=== PATIENT | male | born 1990 | race Two or more races ===

== ENCOUNTER 2016-09-24 00:29 | Emergency (ER) | payer SELFPAY ==
[~2016-09-24] VITALS: Ht 167.6 cm; Wt 65.8 kg
--- NOTE | 2016-09-24 00:40 | NUR ---
JOHNNY CANO AND ACCOMPANIED BY LAPPily HERE FOR PSYCH EVAL. PER REPORT "[facility] [employer] [facility] PT WAS "SUICIDAL AND HAD WRITTEN A SUICIDAL NOTE September; ALSO USED USED METH YESTERDAY AT 1700". DENIES CP/SOB/N/V. TACHYCARDIC AT [address] INIGUEZ NOTIFIED. PLACED ON MONITOR AND OXYGEN. SI PRECS IN PLACE. MONITORED CLOSELY AND AWAITS MD BANKS.
[2016-09-24] MEDS ORDERED: IV SET PRIMARY 1 EA INFUS.SET MC ONE (00:55)
[2016-09-24] MEDS ORDERED: IV NS 0.9% 1,000 ML ONE (00:56)
[2016-09-24] MEDS ORDERED: IV NS 0.9% 1,000 ML BAG IV ONE (01:00)
--- NOTE | 2016-09-24 01:10 | NUR ---
MEDICATED ORDERED. STILL MONITORED CLOSELY
[2016-09-24 01:16] LABS: BASOPHILS % (AUTO) 0.1 % (0.0-2.0); EOSINOPHILS % (AUTO) 0.1 % (0.0-6.0); HEMATOCRIT 44 % (39-51); HEMOGLOBIN 14.7 g/dL (13.5-17.5); LYMPHOCYTES # (AUTO) 0.9 /CMM (0.8-4.8); LYMPHOCYTES % (AUTO) 5.1 % (20.0-44.0); MEAN CORPUSCULAR HEMOGLOBIN 30 PG (26.0-33.0); MEAN CORPUSCULAR HGB CONC 34 g/dl (31.0-36.0); MEAN CORPUSCULAR VOLUME 90 fL (80-96); MONOCYTES % (AUTO) 5.5 % (2.0-12.0); NEUTROPHILS # (AUTO) 15.6 /CMM (1.8-8.9); NEUTROPHILS % (AUTO) 89.2 % (43.0-81.0); PLATELET COUNT (AUTO) 269 /CMM (150-450); RDW COEFFICIENT OF VARIATION 11.8 (11.5-15.0); RED BLOOD CELL COUNT(AUTO) 4.84 MIL/uL (4.5-6.0); WHITE BLOOD COUNT (AUTO) 17.5 K/uL (4.3-11.0)
[2016-09-24 01:27] LABS: CALCIUM, SERUM 8.6 mg/dL (8.5-10.1); CARBON DIOXIDE 28 mmol/L (21-32); CHLORIDE 100 mmol/L (98-107); CREATININE 1.3 mg/dL (0.6-1.3); GFR 66 mL/min (>60); GLUCOSE 153 mg/dL (74-106); POTASSIUM 4.1 mmol/L (3.5-5.1); SODIUM SERUM 137 mmol/L (136-145); UREA NITROGEN, BLOOD 20 mg/dL (7-18)
[2016-09-24 01:32] LABS: ALANINE AMINOTRANSFERASE 168 U/L (12-78); ALBUMIN 4.5 g/dL (3.4-5.0); ALCOHOL, BLOOD < 3 mg/dL (0-0); ALKALINE PHOSPHATASE 95 U/L (46-116); ASPARTATE AMINOTRANSFERASE 71 U/L (15-37); BILIRUBIN,DIRECT 0.1 mg/dL (0.0-0.2); BILIRUBIN,TOTAL 0.5 mg/dL (0.2-1.0); TOTAL PROTEIN, SERUM 8.3 g/dL (6.4-8.2)
[2016-09-24 01:33] LABS: ACETAMINOPHEN 0 ug/ml (10-30); SALICYLATE 0.9 mg/dL (2.8-20.0)
--- NOTE | 2016-09-24 02:07 | NUR ---
STATES "IV CAME OUT WHILE TURNING; DIDNT PULL IT PUT". BLEEDING CONTAINED WITH 2X2. AMBULATED TO RESTROOM FOR URINE SAMPLE BUT UNABLE TO AT THIS TIME. REFUSES I&O AND STATES "GIBE ME SOME WATER AND I WILL TRY". GIVEN WATER. DR. INIGUEZ NOTIFIED.
[2016-09-24 03:01] LABS: APPEARANCE,URINE CLEAR (CLEAR); BILIRUBIN,URINE NEGATIVE (NEGATIVE); BLOOD, URINE NEGATIVE Ery/uL (NEGATIVE); COLOR,URINE YELLOW (YELLOW); KETONES,URINE NEGATIVE (NEGATIVE); LEUKOCYTE ESTERASE ,URINE NEGATIVE (NEGATIVE); NITRITE, URINE NEGATIVE (NEGATIVE); PROTEIN,URINE TRACE mg/dl (NEGATIVE); UGLUCOSE NEGATIVE (NEGATIVE); UROBILINOGEN,URINE 0.2 EU/dL (0.2)
[2016-09-24 03:07] LABS: CANNABINOID, URINE NEGATIVE (NEGATIVE); PHENCYCLIDINE SCREEN,URINE NEGATIVE (NEGATIVE)
--- NOTE | 2016-09-24 03:17 | NUR ---
PER ART "MEDICATE AND I WILL EVALUATE PT IN THE MORNING". DR. INIGUEZ AWARE
[2016-09-24 03:21] LABS: ADD URINE CULTURE NO; BACTERIA,URINE None seen /HPF (None Seen); RBC,URINE 0-2 /HPF (0-2); SQUAMOUS EPITHELIAL CELL,UR Rare /HPF (None Seen); WBC,URINE 0-2 /HPF (0-3)
[2016-09-24] MEDS ORDERED: LORAZEPAM INJ 2 MG/ML VIAL ONE (03:21)
[2016-09-24] MEDS ORDERED: LORAZEPAM INJ 2 MG/ML VIAL IM ONE (03:30)
--- NOTE | 2016-09-24 04:04 | NUR ---
RESTING QUIETLY WITH NO S/S OF DISTRESS. RESP EVEN AND UNLABORED. STILL ON MONITOR AND OXYGEN.
--- NOTE | 2016-09-24 05:12 | NUR ---
REMAINS RESTING WITH NO S/S OF DISTRESS. RESP EVEN AND UNLABORED.
--- NOTE | 2016-09-24 06:25 | NUR ---
NO NEW CHANGES FROM PREVIOUS ASSESSMENT. RESP EVEN AND UNLABORED. WILL CONTINUE TO MONITOR PT.
--- NOTE | 2016-09-24 07:15 | NUR ---
RECEIVED PT ON BED AWAKE ORIENTED. DENIES SI HI. MADE AWARE .
--- NOTE | 2016-09-24 07:20 | NUR ---
AT BEDSIDE FOR EVAL
[2016-09-24 07:44] VITALS: BP 116/84
--- NOTE | 2016-09-24 07:46 | NUR ---
Patient discharged to home in stable condition. Written and verbal after care instructions given. Patient verbalizes understanding of instruction.
== END 2016-09-24 07:47 | disposition home or self-care (01) ==
LOC: ER 00:34
DX: R45.851 Suicidal ideations (principal); F14.10 Cocaine abuse, uncomplicated; F11.10 Opioid abuse, uncomplicated; F32.9 Major depressive disorder, single episode, unspecified; F31.9 Bipolar disorder, unspecified
CPT/HCPCS: 36415; 71010-TC; 80048-TC; 80076-TC; 80305; 81000-TC; 85025-TC; A4606; G0480; G6039-TC; J2060; J7030; Z7610

== ENCOUNTER 2017-11-24 22:36 | Inpatient (IN) | payer OTHER ==
[~2017-11-24] VITALS: Ht 172.7 cm; Wt 75.3 kg
--- NOTE | 2017-11-24 22:36 | NUR ---
PT BB FRIEND C/C BILATERAL LOWER FOOT INFECTION S/P RIPPING TOE NAILS OFF AFTER USING METH AND HAS BEEN ON ATB SINCE TUESDAY. VSS CHRISTINE A/BOOKER ABLE TO MAKE NEEDS KNOWN. WILL CONTINUE TO MONITOR FOR ANY CHANGES DURING THE SHIFT. Addendum: 11/25/17 at 0021 by WROBBINS COCAINE AND HEROINE. NOT METH
[2017-11-24] MEDS ORDERED: ONDANSETRON HCL/PF 4 MG/2 ML VIAL ONE ×2 (23:16→23:21)
[2017-11-24] MEDS ORDERED: VANCOMYCIN 1 GM VIAL ONE ×2 (23:16→23:22)
[2017-11-24] MEDS ORDERED: MORPHINE SULFATE INJ 4 MG/ML DISP.SYRIN ONE ×2 (23:17→23:22)
[2017-11-24] MEDS ORDERED: MORPHINE SULFATE INJ 2 MG/ML DISP.SYRIN IV ONE (23:30)
[2017-11-24] MEDS ORDERED: VANCOMYCIN 1 GM in IV D5W 250 ML IV ONE (23:30)
[2017-11-24] MEDS ORDERED: ONDANSETRON HCL/PF 4 MG/2 ML VIAL IV ONE (23:30)
[2017-11-24 23:55] LABS: BASOPHILS % (AUTO) 0.2 % (0.0-2.0); EOSINOPHILS % (AUTO) 5.3 % (0.0-6.0); HEMATOCRIT 36 % (39-51); HEMOGLOBIN 12.3 g/dL (13.5-17.5); LYMPHOCYTES # (AUTO) 1.2 /CMM (0.8-4.8); MEAN CORPUSCULAR HGB CONC 34 g/dl (31.0-36.0); MEAN CORPUSCULAR VOLUME 93 fL (80-96); MONOCYTES # (AUTO) 0.5 /CMM (0.1-1.30); MONOCYTES % (AUTO) 7.4 % (2.0-12.0); NEUTROPHILS # (AUTO) 5.1 /CMM (1.8-8.9); NEUTROPHILS % (AUTO) 70.1 % (43.0-81.0); PLATELET COUNT (AUTO) 275 /CMM (150-450); RDW COEFFICIENT OF VARIATION 11.9 (11.5-15.0); RED BLOOD CELL COUNT(AUTO) 3.84 MIL/uL (4.5-6.0); WHITE BLOOD COUNT (AUTO) 7.2 K/uL (4.3-11.0)
[2017-11-25 00:12] LABS: INR 0.96 (0.87-1.13)
[2017-11-25 00:19] LABS: CALCIUM, SERUM 8.9 mg/dL (8.5-10.1); CREATININE 0.9 mg/dL (0.6-1.3); POTASSIUM 3.3 mmol/L (3.5-5.1)
--- NOTE | 2017-11-25 00:21 | NUR ---
PT SEEN BY FABIOLA AND OLMAN TO BE ADM TO [facility]
--- NOTE | 2017-11-25 00:26 | NUR ---
REPORT GIVEN TO GWENDOLYN
[2017-11-25] MEDS ORDERED: ACETAMINOPHEN 325 MG TABLET PO PRN (00:30)
[2017-11-25] MEDS ORDERED: MAG HYDROX/AL HYDROX/SIMETH 30 ML UDC PO PRN (00:30)
[2017-11-25] MEDS ORDERED: MAGNESIUM HYDROXIDE 30 ML UDC PO PRN (00:30)
[2017-11-25] MEDS ORDERED: ONDANSETRON HCL/PF 4 MG/2 ML VIAL IVP PRN (00:30)
[2017-11-25] MEDS ORDERED: Z GUARD REMEDY 2 OZ OINT TP PRN (00:30)
[2017-11-25 00:50] VITALS: BP 124/74
[2017-11-25 01:00] VITALS: BP 124/74
[2017-11-25] MEDS ORDERED: POTASSIUM CHLORIDE 20 MEQ TAB.PRT.SR PO ONE (01:00)
[2017-11-25] MEDS ORDERED: PIPERACILLIN /TAZOBACTAM 3.375 G in IV NS 0.9% 50 ML IV ONE (01:00)
--- NOTE | 2017-11-25 01:00 | NUR ---
RN ADMITTING NOTES RECEIVED REPORT FROM FIREFIGHTER NILSA. Pt ARRIVED TO THE FLOOR VIA WHEELCHAIR. NO S/S OF ACUTE DISTRESS OR SOB NOTED. Pt IS A/OX4, VERBAL, ABLE TO MAKE NEEDS KNOWN. M/S ADMISSION. IV ACCESS ON RFA #18G. SAFETY MEASURES IN PLACE. BED LOW, LOCKED, HOB ELEVATED, SIDE RAILS UP, CALL LIGHT AND BEDSIDE TABLE WITHIN REACH. WILL CONTINUE TO MONITOR Pt THROUGHOUT THE NIGHT.
--- NOTE | 2017-11-25 01:30 | NUR ---
RN NOTES PICTURES TAKEN ON L AND R FOOT TOES. CLEANSED TOES WITH NS, PATTED DRY, COVERED EACH TOE WITH BANDAID. WRAPPED TOES WITH KERLIX AND SECURED WITH TAPE.
[2017-11-25] MEDS: IV NS 0.9% 1,000 ML IV PRN ×2 (01:55→21:10)
[2017-11-25] MEDS ORDERED: PIPERACILLIN /TAZOBACTAM 3.375 G VIAL IV ONE ×2 (01:58→06:22)
--- NOTE | 2017-11-25 02:00 | NUR ---
RN NOTES PER NURSE SUPP SAID IT WAS OK FOR THE DESK EDITOR TO OVERRIDE THE ZOSYN IN THE OMNICELL TO GIVE TO Pt PER MD ORDER OF X1 DOSE OF ZOSYN 3.375G.
[2017-11-25] MEDS: HYDROCODONE/APAP 5/325MG 1 EACH TABLET PO PRN ×3 (02:40→15:15)
[2017-11-25] MEDS ORDERED: SERT100T PO (03:18)
[2017-11-25] MEDS ORDERED: BUPR150T5 PO (03:18)
[2017-11-25] MEDS ORDERED: SULF1TAB48 PO (03:19)
[2017-11-25] MEDS: PIPERACILLIN /TAZOBACTAM 3.375 G in IV NS 0.9% 50 ML IV SCH ×4 (06:00→23:28)
--- NOTE | 2017-11-25 06:36 | NUR ---
RN NOTES Pt REFUSED AM LAB DRAWS. SAID THEY WILL COME BACK LATER TODAY TO RETRY AGAIN.
--- NOTE | 2017-11-25 06:41 | NUR ---
TEXTED DR. ROCA FOR MRI APPROVAL,
--- NOTE | 2017-11-25 06:45 | NUR ---
RN CLOSING NOTES NO SIGNIFICANT CHANGES IN Pt's CONDITION. Pt REMAINS STABLE AT THIS TIME. NO S/S OF ACUTE DISTRESS OR SOB NOTED DURING THE SHIFT. ALL NEEDS MET AND ATTENDED TO. SAFETY MEASURES IN PLACE. BED LOW, LOCKED, HOB ELEVATED, SIDE RAILS UP, CALL LIGHT AND BEDSIDE TABLE WITHIN REACH. WILL ENDORSE TO DAYSHIFT RN FOR Pt's DANII.
[2017-11-25] MEDS ORDERED: FEE PK DOSING 1 MIN EA MC ONE (07:00)
--- NOTE | 2017-11-25 07:30 | NUR ---
MS/RN OPENING NOTE PATIENT ALERT AND ORIENTED X4. DENIES SOB. RESPIRATION REGULAR AND UNLABORED. DENIES PAIN. PATIENT NOTED WITH BOTH FEET TOES DRESSING IN PLACE. NO STRIKE THRU NOTED. PEDAL PULSES PRESENT. RFA G 18 PATENT AND IV FLUIDS INFUSING WITH NO S/S INFILTRATION. BED LOW AND LOCKED. SIDE RAILS UP X2. CALL LIGHT WITHIN REACH. WILL CONTINUE TO MONITOR.
[2017-11-25 08:00] VITALS: BP 113/62
--- NOTE | 2017-11-25 08:14 | NUR ---
MS/RN NOTE PATIENT IS SEENT BY DR BLACKBURN. NEW ORDER ARE RECEIVED. THE ORDERS READ BACK, VERIFIED, NOTED AND CARRIED OUT.
[2017-11-25] MEDS ORDERED: LIDOCAINE 1% INJ 50 ML MDV IJ ONE (08:30)
[2017-11-25] MEDS ORDERED: MORPHINE SULFATE INJ 4 MG/ML DISP.SYRIN IV STA (08:44)
[2017-11-25 09:42] LABS: BASOPHILS % (AUTO) 0.3 % (0.0-2.0); EOSINOPHILS % (AUTO) 5.4 % (0.0-6.0); HEMATOCRIT 34 % (39-51); HEMOGLOBIN 11.7 g/dL (13.5-17.5); LYMPHOCYTES # (AUTO) 0.9 /CMM (0.8-4.8); LYMPHOCYTES % (AUTO) 12.1 % (20.0-44.0); MEAN CORPUSCULAR HGB CONC 35 g/dl (31.0-36.0); MEAN CORPUSCULAR VOLUME 93 fL (80-96); MONOCYTES # (AUTO) 0.5 /CMM (0.1-1.30); MONOCYTES % (AUTO) 7.5 % (2.0-12.0); NEUTROPHILS # (AUTO) 5.4 /CMM (1.8-8.9); NEUTROPHILS % (AUTO) 74.7 % (43.0-81.0); PLATELET COUNT (AUTO) 268 /CMM (150-450); RDW COEFFICIENT OF VARIATION 11.7 (11.5-15.0); RED BLOOD CELL COUNT(AUTO) 3.64 MIL/uL (4.5-6.0); WHITE BLOOD COUNT (AUTO) 7.2 K/uL (4.3-11.0)
[2017-11-25 09:58] LABS: CALCIUM, SERUM 8.5 mg/dL (8.5-10.1); MAGNESIUM 1.8 mg/dL (1.8-2.4); PHOSPHORUS 3.6 mg/dL (2.5-4.9); POTASSIUM 3.9 mmol/L (3.5-5.1)
[2017-11-25] MEDS ORDERED: BACITRACIN/POLYMYXIN B 15 GM TUBE TP SCH (10:00)
--- NOTE | 2017-11-25 10:02 | NUR ---
WOUND CARE CONSULT: PT PRESENTS WITH LEFT SHOULDER/BACK AREA WOUND WHICH HAS SIGNS OF HEALING AT EDGES. RECOMMENDATIONS MADE FOR WOUND CARE. DISCUSSED WITH NURSING STAFF. DEFER TO DPM FOR LOWER EXTREMITIES. PT INDEPENDENT WITH BED MOBILITY AND CONTINENT. WILL SEE PRN. JOHNSON IN AGREEMENT WITH PLAN OF CARE. Addendum: 11/25/17 at 1003 by CHARO RAYA WNDNU Amended: Links added.
[2017-11-25] MEDS: PANTOPRAZOLE 40 MG TABLET.DR PO SCH (10:07)
[2017-11-25] MEDS: ENOXAPARIN SODIUM 40 MG/0.4 ML DISP.SYRIN SQ SCH (10:08)
[2017-11-25] MEDS: VANCOMYCIN 1.25 GM in IV D5W 500 ML IV SCH ×2 (10:09→16:29)
--- NOTE | 2017-11-25 14:52 | NUR ---
Social service consult requested by DARWIN Honeycutt for IV drug use. Pt. is a 27-year-old male with past medical history of bipolar disorder and polysubstance drug abuse who presented to [facility] for infected toes. SW met with pt. bedside. Pt. is alert and oriented x 3. Pt. appeared a bit tired since he had surgery earlier this morning. Pt. states he resides at a sober living but did not provide the address. Pt. was sober for 7 months but went on a binder that included coke, and heroin. Pt. stated he woke up the next day surrounded by a lot of blood, with severely bleeding toes. Pt. is not sure if he pulled off all his 10 toenails or that he may have cut them off with nail clippers, and may have also chewed them off as well. Pt. states he has a history of self-mutilation and "has done bad things in the past." Pt. states he attended [facility] drug treatment program for 7 months and completed their program. SW inquired with pt. if there was any stressors that led him to use again. Pt. stated, there were none. Pt. smokes cigarettes occasionally. Denies using alcohol and marijuana. SW offered pt. referrals to drug treatment programs, however pt. declined. Pt. stated he is able to stop using as before. No other social service needs are required at this time. SW is available, if needed.
[2017-11-25 16:00] VITALS: BP 106/53
[2017-11-25] MEDS: MORPHINE SULFATE INJ 4 MG/ML DISP.SYRIN IV PRN (17:19)
--- NOTE | 2017-11-25 18:49 | NUR ---
MS/RN CLOSING NOTE PATIENT ALERT AND ORIENTED X4. RESPIRATION REGULAR AND UNLABORED. DENIES SOB. BOTH FEET DRESSING INTACT WITH NO STRIKE THRU. DENIES PAIN AT THIS TIME. PEDAL PULSES PRESENT BILATERALLY. RFA G 18 PATIENT AND IV INFUSING WITH NO S/S INFILTRATION. PATIENT CONTINENT ON BOWEL AND BLADDER. BED LOW AND LOCKED. SIDE RAILS UP X2. VERBAL CUES PROVIDED TO KEEP SAFETY AWARENESS HIGH. CALL LIGHT WITHIN REACH. WILL ENDORSE TO TAXONOMIST.
--- NOTE | 2017-11-25 19:30 | NUR ---
MS RN NOTES RECEIVED RESTING COMFORTABLY ON BED,BREATHING REGULAR,IVF IN PROGRESS,BILATERAL FOOT DRESSING INTACT AND DRY.DENIES PAIN AT THE MOMENT.CALL LIGHT IN REACH,NEEDS ANTICIPATED.
--- NOTE | 2017-11-25 19:32 | NUR ---
MS/RN NOTE RECEIVED ORDER FROM DARWIN Schmitz READ BACK, VERIFIED. NOTED AND CARRIED OUT.
[2017-11-25 20:00] VITALS: BP 106/51
[2017-11-25] MEDS: SILVER SULFADIAZINE CREAM 25 GM TUBE TP SCH (20:58)
[2017-11-26] MEDS: PIPERACILLIN /TAZOBACTAM 3.375 G in IV NS 0.9% 50 ML IV SCH ×3 (05:28→18:18)
--- NOTE | 2017-11-26 06:34 | NUR ---
MS RN NOTES SLEPT WELL AT NIGHT,IV ABX TOLERATED WELL.NPO POST MIDNIGHT,FOR RIGHT GREAT TOE AMPUTATION,NOT IN THE SURGERY SCHEDULE. CONSENT SIGNED,CHECKLIST PARTIALLY DONE IVF INFUSING ON RIGHT AC,SITE REMAINS PATENT.IN NO ACUTE DISTRESS.WILL ENDORSE TO DAY NURSE FOR DANII.
[2017-11-26] MEDS: MORPHINE SULFATE INJ 4 MG/ML DISP.SYRIN IV PRN ×6 (06:55→22:07)
--- NOTE | 2017-11-26 07:17 | NUR ---
MS/RN OPENING NOTE PATIENT IN BED AWAKE. ALERT AND ORIENTED X4. DENIES SOB. RESPIRATION REGULAR AND UNLABORED. DENIES PAIN. PATIENT IN NO APPARENT DISTRESS. NPO SINCE MIDNIGHT. PATIENT IS REMINDED TO REMAIN NPO AND THE PATIENT IS EXPLAINED THE REASON FOR NPO. RFA G 18 PATENT AND IV INFUSING WITH NO S/S INFILTRATION. BILATERAL FEET DRESSING INTACT AND CLEAN. BED LOW AND LOCKED. SIDE RAILS UP X2. CALL LIGHT WITHIN REACH. WILL CONTINUE TO MONITOR.
[2017-11-26 08:00] VITALS: BP 107/61
--- NOTE | 2017-11-26 08:02 | NUR ---
MS/RN NOTE PER ALEJANDRA FROM SURGERY PATIENT`S SURGERY FOR RIGHT GREAT TOE AMPUTATION IS SCHEDULED ON Tuesday11/28/17. PATIENT IS MADE AWARE.
[2017-11-26] MEDS: PANTOPRAZOLE 40 MG TABLET.DR PO SCH (08:57)
[2017-11-26] MEDS: ENOXAPARIN SODIUM 40 MG/0.4 ML DISP.SYRIN SQ SCH (08:58)
--- NOTE | 2017-11-26 09:28 | NUR ---
MS/RN NOTE VANCO 1.25 GM DUE AT 0800 NOT ADMINISTERED YET DUE TO VANCO THROUGH DONE LATE AND RESULT STILL NOT AVAILABLE.
[2017-11-26 09:41] LABS: BASOPHILS % (AUTO) 0.2 % (0.0-2.0); EOSINOPHILS % (AUTO) 4.3 % (0.0-6.0); HEMATOCRIT 34 % (39-51); HEMOGLOBIN 11.7 g/dL (13.5-17.5); LYMPHOCYTES # (AUTO) 0.9 /CMM (0.8-4.8); LYMPHOCYTES % (AUTO) 12.8 % (20.0-44.0); MEAN CORPUSCULAR HGB CONC 35 g/dl (31.0-36.0); MEAN CORPUSCULAR VOLUME 93 fL (80-96); MONOCYTES # (AUTO) 0.4 /CMM (0.1-1.30); MONOCYTES % (AUTO) 6.1 % (2.0-12.0); NEUTROPHILS # (AUTO) 5.6 /CMM (1.8-8.9); NEUTROPHILS % (AUTO) 76.6 % (43.0-81.0); PLATELET COUNT (AUTO) 283 /CMM (150-450); RED BLOOD CELL COUNT(AUTO) 3.62 MIL/uL (4.5-6.0); WHITE BLOOD COUNT (AUTO) 7.3 K/uL (4.3-11.0)
[2017-11-26] MEDS: SILVER SULFADIAZINE CREAM 25 GM TUBE TP SCH ×2 (09:43→17:04)
[2017-11-26 09:58] LABS: CALCIUM, SERUM 8.9 mg/dL (8.5-10.1); PHOSPHORUS 3.1 mg/dL (2.5-4.9); POTASSIUM 3.9 mmol/L (3.5-5.1)
[2017-11-26] MEDS: VANCOMYCIN 1.25 GM in IV D5W 500 ML IV SCH ×3 (10:06)
--- NOTE | 2017-11-26 10:12 | NUR ---
MS/RN NOTE VANCO TROUGH 17 AND VANCO ADMINISTERED.
[2017-11-26] MEDS: HYDROCODONE/APAP 5/325MG 1 EACH TABLET PO PRN ×2 (13:40→21:01)
[2017-11-26 16:00] VITALS: BP 103/50
[2017-11-26] MEDS: LACTOBACILLUS RHAMNOSUS GG 1 EACH CAP.SPRINK PO SCH (17:03)
[2017-11-26] MEDS: VANCOMYCIN 1 GM in IV D5W 250 ML IV SCH (17:06)
[2017-11-26] MEDS: IV NS 0.9% 1,000 ML IV PRN (17:11)
--- NOTE | 2017-11-26 18:35 | NUR ---
MS/RN NOTE PATIENT IS NOTED WITH SKIN TEAR. COVERED WITH MEPILEX. INCIDENT REPORT DONE. CHANGE NURSE IS MADE AWARE. UPCOMING SHIFT IS MADE AWARE TO FOLLOW UP WITH MD.
--- NOTE | 2017-11-26 18:47 | NUR ---
MS/RN NOTE DR ARROYO IS MADE AWARE OF MRSA OF NARES RESULT. NEW ORDER IS OBTAINED. NOTED AND CARRIED OUT.
--- NOTE | 2017-11-26 18:48 | NUR ---
MS/RN CLOSING NOTE PATIENT ALERT AND ORIENTED X4. DENIES SOB. RESPIRATION REGULAR AND UNLABORED. ALL DRESSING CHANGES ON THE WOUNDS. DRESSINGS ARE INTACT AND WITH NO BLEEDING. THE PATIENT IN NO APPARENT DISTRESS. RFA G 18 PATENT AND IV INFUSING WITH NO S/S INFILTRATION. BED LOW AND LOCKED. SIDE RAILS UP X2. CALL LIGHT WITHIN REACH. WILL ENDORSE TO WRAPPER CASER.
--- NOTE | 2017-11-26 19:00 | NUR ---
RN OPENING NOTES PT AWAKE AND RESTING IN BED. PT COMPLAINS OF BILATERAL FOOT PAIN. WILL ASSESS PAIN MEDICATION ROUTINE AND CONTINUE TO MONITOR. NO SOB, OR DISTRESS AT THIS TIME. PT HAS A RIGHT FA #18 RUNNING NS @75ML/HR, PT TOLERATING FLUIDS WELL. PT SCHEDULED FOR RIGHT GREAT TOE AMPUTATION TUESDAY. SAFETY PRECAUTIONS IN PLACE. BED IN LOWEST LOCKED POSITION, X2 SIDE RAILS UP, AND CALL LIGHT WITHIN REACH. WILL CONTINUE TO MONITOR.
[2017-11-26 20:00] VITALS: BP 113/54
[2017-11-26] MEDS: MUPIROCIN OINT 2% 22 GM TUBE SCH ×2 (20:06→20:12)
--- NOTE | 2017-11-26 20:10 | NUR ---
RN NOTES CALLED [employer] FOR ISOLATION CART.
--- NOTE | 2017-11-26 20:15 | NUR ---
RN NOTES PT RECEIVED FIRST DOSE OF BACTROBAN @1999. HELD 2100 DOSE. MEDICATION Q12H.
--- NOTE | 2017-11-26 21:01 | NUR ---
RN NOTES PT REQUESTED PAIN MEDICATION FOR BILATERAL FOOT PAIN. WILL ADMINISTER PRN NORCO 5-325MG AND CONTINUE TO MONITOR.
--- NOTE | 2017-11-26 22:07 | NUR ---
RN NOTES PT STATED THAT HE WAS STILL IN PAIN AFTER PRN NORCO 5-325 MG WAS ADMINISTERED. PT VITAL SIGNS WNL. WILL ADMINISTER MORPHINE 2MG AND CONTINUE TO MONITOR.
[2017-11-27] MEDS: PIPERACILLIN /TAZOBACTAM 3.375 G in IV NS 0.9% 50 ML IV SCH ×5 (00:06→23:19)
[2017-11-27] MEDS: VANCOMYCIN 1 GM in IV D5W 250 ML IV SCH ×4 (00:42→23:19)
--- NOTE | 2017-11-27 06:12 | NUR ---
RN NOTES PT REQUESTED LAB DRAW AFTER BREAKFAST.
--- NOTE | 2017-11-27 06:47 | NUR ---
RN CLOSING NOTES PT RESTING IN BED EASILY AWOKEN. NO COMPLAINTS OF PAIN, SOB, OR DISTRESS AT THIS TIME. PT HAS A RIGHT FA #18 RUNNING NS @75ML/HR, PT TOLERATING FLUIDS WELL. PT SCHEDULED FOR RIGHT GREAT TOE AMPUTATION TUESDAY CONSENTS SIGNED AND IN CHART. ALL PATIENT NEEDS MET OVERNIGHT. SAFETY PRECAUTIONS IN PLACE. BED IN LOWEST LOCKED POSITION, X2 SIDE RAILS UP, AND CALL LIGHT WITHIN REACH. WILL ENDORSE TO DAY SHIFT NURSE FOR CONTINUITY OF CARE.
--- NOTE | 2017-11-27 07:49 | NUR ---
MS RN OPENING NOTE RECEIVED PATIENT IN BED, ALERT ORIENTED X4. ON ROOM AIR, TOLERATING WELL. RESPIRATIONS EVEN AND UNLABORED, NO SIGNS OF DISTRESS OR DISCOMFORT NOTED. ABLE TO COMMUNICATE NEEDS, DENIES PAIN AND SOB AT THIS TIME. ISOLATION PRECAUTIONS OBSERVED AT THE DOOR. RIGHT FA IVC 18G WITH FLUIDS RUNNING AT 75ML/HR. PATIENT WITH BILATERAL FOOT DRESSING, INTACT WITH MINIMAL SEROSANGUINEOUS DRAINAGE. PATIENT IS CONTINENT. ALL NEEDS ATTENDED, KEPT CLEAN AND COMFORTABLE. SAFETY MEASURES IN PLACE BED IN LOW LOCKED POSITION, SIDE RAILS UP X2, CALL LIGHT WITHIN EASY REACH, WILL CONTINUE TO MONITOR.
[2017-11-27 08:00] VITALS: BP 116/67
[2017-11-27] MEDS: LACTOBACILLUS RHAMNOSUS GG 1 EACH CAP.SPRINK PO SCH ×2 (08:26→17:24)
[2017-11-27] MEDS: NEOMY SULF/BACITRAC ZN/POLY 15 GM TUBE TP SCH ×2 (08:26→17:56)
[2017-11-27] MEDS: PANTOPRAZOLE 40 MG TABLET.DR PO SCH (08:26)
[2017-11-27] MEDS: ENOXAPARIN SODIUM 40 MG/0.4 ML DISP.SYRIN SQ SCH (08:28)
[2017-11-27] MEDS: MORPHINE SULFATE INJ 4 MG/ML DISP.SYRIN IV PRN ×6 (08:28→22:07)
[2017-11-27] MEDS: MUPIROCIN OINT 2% 22 GM TUBE SCH ×2 (08:31→21:56)
[2017-11-27] MEDS: SILVER SULFADIAZINE CREAM 25 GM TUBE TP SCH ×2 (08:41→17:56)
[2017-11-27 09:00] VITALS: BP 116/67
[2017-11-27 13:04] LABS: BASOPHILS % (AUTO) 0.4 % (0.0-2.0); EOSINOPHILS % (AUTO) 3.9 % (0.0-6.0); HEMATOCRIT 36 % (39-51); HEMOGLOBIN 12.4 g/dL (13.5-17.5); LYMPHOCYTES # (AUTO) 1.3 /CMM (0.8-4.8); LYMPHOCYTES % (AUTO) 21.8 % (20.0-44.0); MEAN CORPUSCULAR HGB CONC 34 g/dl (31.0-36.0); MEAN CORPUSCULAR VOLUME 94 fL (80-96); MONOCYTES # (AUTO) 0.5 /CMM (0.1-1.30); MONOCYTES % (AUTO) 7.5 % (2.0-12.0); NEUTROPHILS # (AUTO) 4.1 /CMM (1.8-8.9); NEUTROPHILS % (AUTO) 66.4 % (43.0-81.0); PLATELET COUNT (AUTO) 292 /CMM (150-450); RDW COEFFICIENT OF VARIATION 12.1 (11.5-15.0); RED BLOOD CELL COUNT(AUTO) 3.89 MIL/uL (4.5-6.0); WHITE BLOOD COUNT (AUTO) 6.1 K/uL (4.3-11.0)
[2017-11-27 13:19] LABS: CALCIUM, SERUM 8.8 mg/dL (8.5-10.1); CREATININE 1.1 mg/dL (0.6-1.3); MAGNESIUM 2.2 mg/dL (1.8-2.4); PHOSPHORUS 3.6 mg/dL (2.5-4.9)
[2017-11-27 16:16] VITALS: BP 125/71
--- NOTE | 2017-11-27 19:30 | NUR ---
RN OPENING NOTES PT AWAKE AND RESTING IN BED. FRIEND AT BEDSIDE. PT COMPLAINS OF BILATERAL FOOT PAIN. WILL ASSESS PRN PAIN MEDICATION AND ADMINISTER. NO COMPLAINTS OF SOB OR DISTRESS AT THIS TIME. PT HAS A RIGHT FA #18 RUNNING NS @75ML/HR, PT TOLERATING FLUIDS WELL. PT SCHEDULED FOR RIGHT GREAT TOE AMPUTATION TUESDAY CONSENTS SIGNED AND IN CHART. SAFETY PRECAUTIONS IN PLACE. BED IN LOWEST LOCKED POSITION, X2 SIDE RAILS UP, AND CALL LIGHT WITHIN REACH. WILL WILL CONTINUE TO MONITOR.
--- NOTE | 2017-11-27 19:51 | NUR ---
RN NOTES PT REQUESTED PAIN MEDICATION FOR BILATERAL FOOT PAIN. WILL ADMINISTER PRN MORPHINE 2MG AND CONTINUE TO MONITOR.
[2017-11-27 20:00] VITALS: BP 130/56
--- NOTE | 2017-11-27 22:07 | NUR ---
RN NOTES PT REQUESTED PAIN MEDICATION FOR BILATERAL FOOT PAIN. WILL ADMINISTER PRN MORPHINE 2MG AND CONTINUE TO MONITOR.
[2017-11-28] MEDS: PIPERACILLIN /TAZOBACTAM 3.375 G in IV NS 0.9% 50 ML IV SCH ×3 (05:08→18:17)
[2017-11-28] MEDS: IV NS 0.9% 1,000 ML IV PRN (05:36)
--- NOTE | 2017-11-28 06:29 | NUR ---
RN CLOSING NOTES PT RESTING IN BED EASILY AWAKEN. NO COMPLAINTS OF PAIN, SOB, OR DISTRESS AT THIS TIME. PT HAS A RIGHT FA #18 RUNNING NS @75ML/HR, PT TOLERATING FLUIDS WELL. PT SCHEDULED FOR RIGHT GREAT TOE AMPUTATION TUESDAY CONSENTS SIGNED AND IN CHART. ALL PATIENTS NEEDS MET OVERNIGHT. WOUND CARE CARRIED OUT ORDERED. PT CONT AND USES URINAL. SAFETY PRECAUTIONS IN PLACE. BED IN LOWEST LOCKED POSITION, X2 SIDE RAILS UP, AND CALL LIGHT WITHIN REACH. WILL ENDORSE TO DAY SHIFT NURSE FOR CONTINUITY OF CARE.
--- NOTE | 2017-11-28 07:05 | NUR ---
ms rn initial notes Received patient in bed, asleep, head of bed elevated, no SOB or distress noted. on room air and tolerated well. Bilateral foot dressing intact. IV inplaced with IVF infusing well. Patient refused lab draw for vanco trough level, per patient he will just let me know later when to draw the blood, explained the importance for the lab draw for his IV atb and made aware. Call light with in patient reach, will continue to monitor.
[2017-11-28] MEDS: PANTOPRAZOLE 40 MG TABLET.DR PO SCH (07:30)
[2017-11-28 08:00] VITALS: BP 115/71
[2017-11-28 08:37] VITALS: BP_SYST 112; BP_SYST 95; BP_DIAS 47; BP_DIAS 58
[2017-11-28] MEDS: NEOMY SULF/BACITRAC ZN/POLY 15 GM TUBE TP SCH ×2 (08:45→16:07)
[2017-11-28] MEDS: MUPIROCIN OINT 2% 22 GM TUBE SCH ×2 (08:45→21:00)
[2017-11-28] MEDS: SILVER SULFADIAZINE CREAM 25 GM TUBE TP SCH ×2 (08:46→16:08)
[2017-11-28] MEDS: LACTOBACILLUS RHAMNOSUS GG 1 EACH CAP.SPRINK PO SCH ×2 (08:47→16:06)
[2017-11-28] MEDS: ENOXAPARIN SODIUM 40 MG/0.4 ML DISP.SYRIN SQ SCH (08:47)
--- NOTE | 2017-11-28 08:47 | NUR ---
ms rn notes Received a call from Dr. Keen regarding patient is scheduled for toe amputation and kept patient NPO. Patient made aware and will sign for consent. Held all oral medications and Lovenox due to patient is NPO and for scheduled surgery. All orders carried out and noted. Will continue to monitor patient.
[2017-11-28] MEDS: MORPHINE SULFATE INJ 4 MG/ML DISP.SYRIN IV PRN ×4 (09:13→22:45)
[2017-11-28 10:53] LABS: BASOPHILS % (AUTO) 0.2 % (0.0-2.0); EOSINOPHILS % (AUTO) 3.9 % (0.0-6.0); HEMATOCRIT 37 % (39-51); HEMOGLOBIN 12.9 g/dL (13.5-17.5); LYMPHOCYTES # (AUTO) 1.2 /CMM (0.8-4.8); LYMPHOCYTES % (AUTO) 18.7 % (20.0-44.0); MEAN CORPUSCULAR HGB CONC 35 g/dl (31.0-36.0); MEAN CORPUSCULAR VOLUME 92 fL (80-96); MONOCYTES # (AUTO) 0.6 /CMM (0.1-1.30); MONOCYTES % (AUTO) 8.5 % (2.0-12.0); NEUTROPHILS # (AUTO) 4.5 /CMM (1.8-8.9); NEUTROPHILS % (AUTO) 68.7 % (43.0-81.0); PLATELET COUNT (AUTO) 294 /CMM (150-450); RDW COEFFICIENT OF VARIATION 11.6 (11.5-15.0); RED BLOOD CELL COUNT(AUTO) 4.03 MIL/uL (4.5-6.0); WHITE BLOOD COUNT (AUTO) 6.6 K/uL (4.3-11.0)
[2017-11-28 11:10] LABS: CALCIUM, SERUM 9.2 mg/dL (8.5-10.1); MAGNESIUM 2.3 mg/dL (1.8-2.4); PHOSPHORUS 3.7 mg/dL (2.5-4.9); POTASSIUM 4.3 mmol/L (3.5-5.1)
[2017-11-28] MEDS ORDERED: MIDAZOLAM HCL 2 MG/2ML VIAL ONE (11:54)
[2017-11-28] MEDS ORDERED: HYDROMORPHONE INJ 2 MG/ML DISP.SYRIN ONE (11:54)
[2017-11-28] MEDS ORDERED: BUPIVACAINE 0.25% 75 MG/30 ML VIAL ONE (11:58)
[2017-11-28] MEDS ORDERED: VANCOMYCIN 1 GM VIAL ONE (12:35)
[2017-11-28] MEDS ORDERED: LIDOCAINE 1%-EPI 1:100,000 20 ML VIAL ONE (12:37)
[2017-11-28 14:30] VITALS: BP 122/68
--- NOTE | 2017-11-28 14:30 | NUR ---
ms rn notes Patient came back from surgery, awake, and alert. resumed diet order. Vital signs checked and recorded. kept comfortable. IV ATB administer. will continue to monitor.
[2017-11-28] MEDS: VANCOMYCIN 1.25 GM in IV D5W 500 ML IV SCH ×2 (15:48→22:38)
[2017-11-28 16:00] VITALS: BP_SYST 122; BP_SYST 125; BP_DIAS 68; BP_DIAS 79
[2017-11-28 16:11] VITALS: BP_SYST 127; BP_DIAS 65; BP_DIAS 67
[2017-11-28] MEDS ORDERED: MORPHINE SULFATE INJ 4 MG/ML DISP.SYRIN IV PRN ×2 (17:30→19:30)
[2017-11-28] MEDS ORDERED: MORPHINE SULFATE INJ 4 MG/ML DISP.SYRIN IV ONE (17:30)
--- NOTE | 2017-11-28 17:31 | NUR ---
ms rn notes Informed MD about patient just had a great toe amputated and patient is screaming for pain and morphine 2 mg IVP given and per MD to give 2 more mg and d/c previous order and change it to Morphine 4mg IVP Q3hrs. All orders carried out and noted.
[2017-11-28] MEDS: HYDROCODONE/APAP 5/325MG 1 EACH TABLET PO PRN (18:29)
--- NOTE | 2017-11-28 19:27 | NUR ---
ms rn notes Called Ramone Arenas CIRCULAR SAW EDGE FUSER regarding patient still complaining of pain and per MD to d/c morphine and change it to Morphine 8mg IVP Q3hrs PRN. All orders carried out and noted. Endorsed to next shift RN to continue care. call light with in patient reach.
[2017-11-28] MEDS ORDERED: MORPHINE SULFATE INJ 10 MG/ML DISP.SYRIN IV PRN (19:30)
--- NOTE | 2017-11-28 19:30 | NUR ---
ms rn notes [place] not effective. Informed MD and made aware.
--- NOTE | 2017-11-28 19:30 | NUR ---
RN OPENING NOTES PT SCREAMING IN PAIN FROM RIGHT GREAT TOE AMPUTATION. BRIANA DAY SHIFT RECEIVED ORDERS FROM DR JUAN DAVID ARROYO TO INCREASE THE MORPHINE TO 8MG Q3H. WILL ADMINISTER AND CONTINUE TO MONITOR. SURGICAL DRESSING INTACT. WOUND DRESSINGS INTACT.
--- NOTE | 2017-11-28 20:00 | NUR ---
RN NOTES LEFT A MESSAGE FOR JUAN DAVID ARROYO TO ADDRESS PT PAIN. WILL CONTINUE TO MONITOR.
--- NOTE | 2017-11-28 20:09 | NUR ---
RN NOTES PT REFUSING VITAL SIGNS CHECK.
--- NOTE | 2017-11-28 20:50 | NUR ---
RN NOTES DR ARROYO ORDERED NEURONTIN 600MG PO QHS AND PRN ATIVAN 1MG Q6H.
[2017-11-28] MEDS: GABAPENTIN 300 MG CAPSULE PO SCH (21:31)
[2017-11-28] MEDS: LORAZEPAM INJ 2 MG/ML VIAL IV PRN (21:32)
[2017-11-28 22:45] VITALS: BP 134/55
--- NOTE | 2017-11-28 22:45 | NUR ---
RN NOTES PT REQUESTING PRN MORPHINE 8MG Q3H FOR RIGHT TOE PAIN 10/10. VITAL SIGNS STABLE. WILL ADMINISTER AND CONTINUE TO MONITOR.
[2017-11-29] MEDS: PIPERACILLIN /TAZOBACTAM 3.375 G in IV NS 0.9% 50 ML IV SCH ×4 (01:09→17:00)
[2017-11-29] MEDS: MORPHINE SULFATE INJ 4 MG/ML DISP.SYRIN IV PRN ×2 (01:57→05:01)
--- NOTE | 2017-11-29 01:57 | NUR ---
RN NOTES PT REQUESTING PRN MORPHINE 8MG Q3H FOR RIGHT TOE PAIN. VITAL SIGNS STABLE. WILL ADMINISTER AND CONTINUE TO MONITOR.
[2017-11-29] MEDS: LORAZEPAM INJ 2 MG/ML VIAL IV PRN ×2 (04:13→21:09)
[2017-11-29] MEDS ORDERED: MORPHINE SULFATE INJ 4 MG/ML DISP.SYRIN ONE (04:26)
[2017-11-29] MEDS: IV NS 0.9% 1,000 ML IV PRN (04:58)
--- NOTE | 2017-11-29 05:01 | NUR ---
RN NOTES PT REQUESTING PRN MORPHINE 8MG Q3H FOR RIGHT TOE PAIN 02/13. VITAL SIGNS STABLE. WILL ADMINISTER AND CONTINUE TO MONITOR.
--- NOTE | 2017-11-29 06:47 | NUR ---
RN CLOSING NOTES PT RESTING IN BED. PT COMPLAINED OF PAIN ALL EVENING. ADDRESSED NEEDS. PT HAS A RIGHT FA #18 RUNNING NS @75ML/HR, PT TOLERATING FLUIDS WELL. PT S/P RIGHT GREAT TOE AMPUTATION. PT CONT AND USES URINAL. SAFETY PRECAUTIONS IN PLACE. BED IN LOWEST LOCKED POSITION, X2 SIDE RAILS UP, AND CALL LIGHT WITHIN REACH. WILL ENDORSE TO DAY SHIFT NURSE FOR CONTINUITY OF CARE.
--- NOTE | 2017-11-29 07:30 | NUR ---
MS RN OPENING NOTES RECEIVED PATIENT IN STABLE CONDITION. IN NO APPARENT DISTRESS. BEDSIDE RAILS ARE UPX2. BED IS LOCKED AND LOWERED. CALL LIGHT IS WITHIN REACH. IV LINE IS INTACT AND PATENT. WILL CONTINUE TO MONITOR.
[2017-11-29] MEDS: PANTOPRAZOLE 40 MG TABLET.DR PO SCH (07:37)
[2017-11-29] MEDS: VANCOMYCIN 1.25 GM in IV D5W 500 ML IV SCH ×2 (07:37→15:00)
[2017-11-29 08:00] VITALS: BP 134/77
[2017-11-29] MEDS ORDERED: HYDROMORPHONE INJ 0.5 MG/0.5 ML SYRINGE IV PRN (08:30)
[2017-11-29] MEDS: SILVER SULFADIAZINE CREAM 25 GM TUBE TP SCH ×2 (08:43→16:55)
[2017-11-29] MEDS: LACTOBACILLUS RHAMNOSUS GG 1 EACH CAP.SPRINK PO SCH ×2 (08:43→16:49)
[2017-11-29] MEDS: NEOMY SULF/BACITRAC ZN/POLY 15 GM TUBE TP SCH ×2 (08:43→16:55)
[2017-11-29] MEDS: MUPIROCIN OINT 2% 22 GM TUBE SCH ×2 (08:43→21:13)
[2017-11-29] MEDS: ENOXAPARIN SODIUM 40 MG/0.4 ML DISP.SYRIN SQ SCH (08:46)
[2017-11-29] MEDS: HYDROMORPHONE INJ 2 MG/ML DISP.SYRIN IV PRN ×5 (08:47→21:54)
[2017-11-29 11:18] LABS: BASOPHILS % (AUTO) 0.2 % (0.0-2.0); EOSINOPHILS % (AUTO) 2.2 % (0.0-6.0); HEMATOCRIT 37 % (39-51); HEMOGLOBIN 12.7 g/dL (13.5-17.5); LYMPHOCYTES # (AUTO) 1.3 /CMM (0.8-4.8); LYMPHOCYTES % (AUTO) 17.3 % (20.0-44.0); MEAN CORPUSCULAR HGB CONC 35 g/dl (31.0-36.0); MEAN CORPUSCULAR VOLUME 93 fL (80-96); MONOCYTES # (AUTO) 0.7 /CMM (0.1-1.30); MONOCYTES % (AUTO) 9.6 % (2.0-12.0); NEUTROPHILS # (AUTO) 5.3 /CMM (1.8-8.9); NEUTROPHILS % (AUTO) 70.7 % (43.0-81.0); PLATELET COUNT (AUTO) 313 /CMM (150-450); RDW COEFFICIENT OF VARIATION 11.8 (11.5-15.0); RED BLOOD CELL COUNT(AUTO) 3.96 MIL/uL (4.5-6.0); WHITE BLOOD COUNT (AUTO) 7.5 K/uL (4.3-11.0)
[2017-11-29 11:35] LABS: CALCIUM, SERUM 8.8 mg/dL (8.5-10.1); CREATININE 1.5 mg/dL (0.6-1.3); MAGNESIUM 2.1 mg/dL (1.8-2.4); PHOSPHORUS 4.4 mg/dL (2.5-4.9); POTASSIUM 3.9 mmol/L (3.5-5.1)
--- NOTE | 2017-11-29 15:33 | NUR ---
VANCO NOT ADMINISTERED. VANCO THROUGH LEVEL IS 32.
[2017-11-29 16:00] VITALS: BP 127/73
--- NOTE | 2017-11-29 18:30 | NUR ---
MS RN CLOSING NOTES PATIENT IS RESTING IN BED IN NO APPARENT DISTRESS. BEDSIDE RAILS ARE UPX2. BED IS LOCKED AND LOWERED. CALL LIGHT IS WITHIN REACH. ALL NEEDS WERE MET. WILL IV LINE IS INTACT AND PATENT. WILL ENDORSE CARE TO CEMETERY COUNSELOR NURSE FOR DANII.
[2017-11-29 20:00] VITALS: BP 139/83
--- NOTE | 2017-11-29 20:00 | NUR ---
MS/RN OPENING NOTES PATIENT IN BED, AWAKE, ALERT X4, ABLE TO VERBALIZE NEEDS, RECEIVED PAIN MEDICATION EARLIER, ON ROOM AIR, RESPIRATIONS EVEN AND UNLABORES, FAMILY MEMBER AT BED SIDE, SKIN WATM TO TOUCH, RIGHT FOOT ELEVATED, DRESSING DRY AND INTACT, PERSONAL BELONGINGS WITHIN REACH, IV FLUIDS RUNNING
[2017-11-29] MEDS: GABAPENTIN 300 MG CAPSULE PO SCH (21:03)
--- NOTE | 2017-11-29 21:08 | NUR ---
MS/RN NOTES PATIENT REPORTED IZA INABILITY TO RELAX, ATIVAN IVP PARTIAL DOSE REQUESTED, WILL MONITOR.
--- NOTE | 2017-11-29 22:00 | NUR ---
MS/RN NOTES PAIN MEDIACTION REQUESTED, OBSERVE GUARDING AND MOANING, REPORTED 7/10 PAIN IN RIGHT FOOT, WILL OBSERVE AND MONITOR EFFECTIVENESS.
[2017-11-30] MEDS: PIPERACILLIN /TAZOBACTAM 3.375 G in IV NS 0.9% 50 ML IV SCH ×4 (01:22→18:38)
[2017-11-30] MEDS: HYDROMORPHONE INJ 2 MG/ML DISP.SYRIN IV PRN ×8 (01:22→21:27)
--- NOTE | 2017-11-30 03:16 | NUR ---
pain reported by patient on right foot at 7/10. administered prn pain med
[2017-11-30] MEDS: IV NS 0.9% 1,000 ML IV PRN (06:32)
--- NOTE | 2017-11-30 06:59 | NUR ---
MS/RN NOTES PAIN MEDICATION GIVEN FOR RIGHT FOOT PAIN REPORTED.
--- NOTE | 2017-11-30 07:00 | NUR ---
MS./RN CLOSING NOTES REPORT GIVEN TO AM RN FOR DANII, PATIENT ALERT, ORIENTED X3, ABLE TO VERBALIZE NEEDS, PAIN MEDICATION GIVEN AT 0659. CALL LIGHTS WITHIN REACH, MONITORED FOR PAIN AND DISCOMFORT DURING THE NIGHT, BED IN LOCK POSITION.
--- NOTE | 2017-11-30 07:10 | NUR ---
MSRN OPENING NOTES. PT RECEIVED A&0X3, ASLEEP AND EASILY WOKEN BY NAME. PT WITH ISO R/T MRSA. PT WITH GF AT BEDSIDE. PT TOLERATING ROOM AIR WITHOUT DISTRESS AND REPORTING CURRENT PAIN MODERATE BUT WITH ADEQUATE PAIN MANAGEMENT IN PLACE. PT WITH IVC AT R FA INTACT AND OPERATIONAL. DRESSINGS CLEAN AND INTACT. PT BED IN LOWEST LOCKED POSITION WITH HNARDRAILSX2 AND CALL FELIPE WITHIN REACH. PT BRIEFED ON TODAY'S POC AND IS WITHOUT CONCERN OR COMPLAINT AT THIS TIME.
[2017-11-30] MEDS: PANTOPRAZOLE 40 MG TABLET.DR PO SCH (07:30)
[2017-11-30 08:00] VITALS: BP 127/65
[2017-11-30 08:03] LABS: CREATININE 1.5 mg/dL (0.6-1.3); POTASSIUM 3.8 mmol/L (3.5-5.1)
[2017-11-30] MEDS ORDERED: VANCOMYCIN 1 GM in IV D5W 500 ML IV SCH (09:00)
[2017-11-30] MEDS: LACTOBACILLUS RHAMNOSUS GG 1 EACH CAP.SPRINK PO SCH ×2 (09:15→16:37)
[2017-11-30] MEDS: ENOXAPARIN SODIUM 40 MG/0.4 ML DISP.SYRIN SQ SCH (09:17)
[2017-11-30] MEDS: MUPIROCIN OINT 2% 22 GM TUBE SCH ×2 (09:22→20:26)
[2017-11-30] MEDS: SILVER SULFADIAZINE CREAM 25 GM TUBE TP SCH ×2 (09:23→16:39)
[2017-11-30] MEDS: NEOMY SULF/BACITRAC ZN/POLY 15 GM TUBE TP SCH ×2 (09:23→16:40)
--- NOTE | 2017-11-30 10:02 | NUR ---
MSRN NOTES. PT WOUND CARE COMPLETED WITH MD BLACKBURN. PT PROVIDED CONTACT DETAILS, WOUND CARE EDUCATION AND POC DISCUSSED AT LENGTH. PRN ANALGESIA PROVIDED PER MD FOR PRE MED.
--- NOTE | 2017-11-30 10:30 | NUR ---
MSRN NOTES. PT REQUESTING TO SMOKE. INFORMED CONSENT FOR SMOKING COMPLETED.
[2017-11-30] MEDS: VANCOMYCIN 1 GM in IV D5W 250 ML IV SCH ×2 (10:33→17:47)
[2017-11-30] MEDS ORDERED: GABA300C PO (13:07)
[2017-11-30] MEDS: GABAPENTIN 300 MG CAPSULE PO SCH ×3 (14:21→21:12)
--- NOTE | 2017-11-30 15:00 | NUR ---
MSRN NOTES. PT FROM 317-2 TO 315-1.
[2017-11-30 16:00] VITALS: BP 129/73
--- NOTE | 2017-11-30 18:10 | NUR ---
MSRN CLOSING NOTES. PT REMAINS A&0X3. PT WITH ISO R/T MRSA. PT WITH GF AT BEDSIDE. PT TOLERATING ROOM AIR WITHOUT DISTRESS AND REPORTING CURRENT PAIN MANAGEMENT. PT WITH IVC AT R FA INTACT AND OPERATIONAL. DRESSINGS REMAIN CLEAN AND INTACT. PT BRIEFED EXTENSIVELY ON WOUND CARE AND S/S OF INFECTION. EXIT CARE READY FOR D/C. PHOTOGRAPHS UPDATED. PT BED IN LOWEST LOCKED POSITION WITH HNARDRAILSX2 AND CALL FELIPE WITHIN REACH. ALL DAY NURSE DUTIES ATTENDED TO AND PT IS WITHOUT CONCERN OR COMPLAINT. WILL ENDORSE TO NIGHT NURSE.
--- NOTE | 2017-11-30 19:37 | NUR ---
MS/RN OPENING NOTES PATIENT IN BED, ALERT, ORIENTED X3, ABLE TO VERBALIZE NEEDS, DISCUSSED DISCHARGE PLAN AND REPORTED PAIN MANAGEMENT DOCTOR WILL COME VISIT HIM BEFORE DISCHARGE, RESPIRATIONS EVEN AND UNLABORED, SKIN WARM TO TOUCH, CALL LIGHTS WITHIN REACH, WILL MONITOR, REPORTED LAST PAIN MEDICATION BEFORE START OF SHIFT. REPORT GIVEN BY AM RN. BED IN LOCK POSITION. CALL LIGHTS WITHIN REACH.
--- NOTE | 2017-11-30 21:14 | NUR ---
MD APARICIO CAME TO VISIT
--- NOTE | 2017-11-30 21:42 | NUR ---
MD NOLEN INSTRUCTED REGARDING SCRIPT, TO GIVE TO THE PATIENT,DILAUDID 1MG IVP GIVEN WITH, DR JONES PRIOR TO DISCHARGE. PATIENT IV SITE ON RIGHT FOREARM REMOVED.
--- NOTE | 2017-11-30 21:56 | NUR ---
MS/RN NOTES PATIENT DISCHARGE TO HOME ACCOMPANIED BY FRIEND, TRANSPORTED VIA WHEELCHAIR IN PRIVATE AUTO. SCRIPT PROVIDED AND MEDICATION INSTRUCTIONS PROVIDE. PATIENT ALERT, ORIENTED, ABLE TO VERBALIZE NEEDS.SAFETY PRECAUTIONS AND PAIN MANAGEMENT EDUCATION .
== END 2017-11-30 21:50 | disposition home or self-care (01) | DRG 314 ==
LOC: ER 22:37 → MED 11-25 00:24
PROVIDERS: ADMIT Registered Nurse; ATTEND Registered Nurse
PROC: 0QBQ0ZZ Excision of Right Toe Phalanx, Open Approach (ICD-10-PCS; principal; 2017-11-25)
PROC: 0QBR0ZZ Excision of Left Toe Phalanx, Open Approach (ICD-10-PCS; principal; 2017-11-25)
PROC: 0QBP0ZZ Excision of Left Metatarsal, Open Approach (ICD-10-PCS; principal; 2017-11-25)
PROC: 0HB6XZX Excision of Back Skin, External Approach, Diagnostic (ICD-10-PCS; 2017-11-28)
PROC: 0Y6P0Z3 Detachment at Right 1st Toe, Low, Open Approach (ICD-10-PCS; 2017-11-29)
DX: M86.8X7 Other osteomyelitis, ankle and foot (principal); I96 Gangrene, not elsewhere classified; L03.115 Cellulitis of right lower limb; L03.116 Cellulitis of left lower limb; S21.109A Unspecified open wound of unspecified front wall of thorax without penetration into thoracic cavity, initial encounter; T21.03XA Burn of unspecified degree of upper back, initial encounter; E87.6 Hypokalemia; F17.210 Nicotine dependence, cigarettes, uncomplicated; Z71.6 Tobacco abuse counseling; S41.102A Unspecified open wound of left upper arm, initial encounter; S41.002A Unspecified open wound of left shoulder, initial encounter; S81.802A Unspecified open wound, left lower leg, initial encounter; S81.801A Unspecified open wound, right lower leg, initial encounter; X58.XXXA Exposure to other specified factors, initial encounter; Y93.9 Activity, unspecified; Y92.009 Unspecified place in unspecified non-institutional (private) residence as the place of occurrence of the external cause; F31.9 Bipolar disorder, unspecified; F19.10 Other psychoactive substance abuse, uncomplicated; S91.311A Laceration without foreign body, right foot, initial encounter; S91.312A Laceration without foreign body, left foot, initial encounter; Z86.19 Personal history of other infectious and parasitic diseases; R22.2 Localized swelling, mass and lump, trunk; R21 Rash and other nonspecific skin eruption; Y27.8XXA Contact with other hot objects, undetermined intent, initial encounter; Z91.5 Personal history of self-harm; S91.301A Unspecified open wound, right foot, initial encounter; S91.302A Unspecified open wound, left foot, initial encounter
CPT/HCPCS: 36415; 73630-TC; 73718-TC; 80048-TC; 80202-TC; 82746; 83605-TC; 83735-TC; 84100-TC; 84443-TC; 85025-TC; 85730-TC; 87040-TC; 87070-TC; 87075-TC; 87081-TC; 88305-TC; 88311-TC; 88312-TC; A4216; A4606; A6209; A6402; A6403; J1170; J1650; J2060; J2250; J2270; J2405; J2543; J3370; J3490; J7030; J7060; Z7610

== ENCOUNTER → 2017-12-04 | Emergency (ER) | payer OTHER ==
[~2017-12-04] VITALS: Ht 172.7 cm; Wt 74.8 kg
[~2017-12-04] MED LIST: BUPR150T5 PO; GABA300C PO; SERT100T PO
[2017-12-04 11:00] VITALS: BP 151/74
== END | disposition home or self-care (01) ==
LOC: ER 10:59
DX: G89.18 Other acute postprocedural pain (principal); F31.9 Bipolar disorder, unspecified; Z89.411 Acquired absence of right great toe
CPT/HCPCS: 99283; A4606; Z7610

== ENCOUNTER 2017-12-20 14:50 | Emergency (ER) | payer OTHER ==
[~2017-12-20] VITALS: Ht 172.7 cm; Wt 74.8 kg
[2017-12-20 14:56] VITALS: BP 131/92
== END 2017-12-20 15:39 | disposition home or self-care (01) ==
LOC: ER 14:51
DX: L97.929 Non-pressure chronic ulcer of unspecified part of left lower leg with unspecified severity (principal); L98.498 Non-pressure chronic ulcer of skin of other sites with other specified severity; F19.10 Other psychoactive substance abuse, uncomplicated; F31.9 Bipolar disorder, unspecified; Z98.890 Other specified postprocedural states; Z60.2 Problems related to living alone; Z48.01 Encounter for change or removal of surgical wound dressing
CPT/HCPCS: A4606; Z7502; Z7610